=== PATIENT | female | born 2000 | race Caucasian/White ===

== ENCOUNTER 2021-03-13 19:24 | Emergency (ER) | payer BC, MEDICAID ==
[2021-03-13] MEDS ORDERED: Hydrocortisone/Neomycin/Polymyxin B Otic Susp 10 ML Bottle ONE (23:25)
--- NOTE | 2021-03-13 23:31 | EDM.PDOC ---
ED HPI GENERAL MEDICAL PROBLEM - General Chief Complaint: ENT Problem Stated Complaint: EAR PAIN Time Seen by Provider: 03/13/21 20:15 Source of Information: Reports: Family History Limitations: Reports: Language Barrier (hearing impaired) - History of Present Illness INITIAL COMMENTS - FREE TEXT/NARRATIVE: ED with family with c/o left ear pain since . No fever or sore throat. Patient deaf. Mother translating. Tried ibuprofen with partial relief. Left Ear Pain Score (Numeric/FACES): 6 - Related Data Allergies Allergy/AdvReac Type Severity Reaction Status Date / Time No Known Allergies Allergy Verified 03/13/21 20:07 Home Meds: Home Meds FLUoxetine [PROzac] 40 mg PO DAILY 03/13/21 [History] Melatonin 50 mg PO DAILY 03/13/21 [History] buPROPion HCL [Bupropion Xl] 150 mg PO DAILY 03/13/21 [History] traZODone 50 mg PO DAILY 03/13/21 [History] Past Medical History Psychiatric History: Reports: Depression - Past Surgical History HEENT Surgical History: Reports: Other (See Below) Other HEENT Surgeries/Procedures: cochlear implant Social & Family History - Tobacco Use Tobacco Use Status *Q: Never Tobacco User - Recreational Drug Use Recreational Drug Use: No ED ROS ENT - Review of Systems Review Of Systems: Comprehensive ROS is negative, except as noted in HPI. ED EXAM, ENT - Physical Exam Exam: See Below Exam Limited By: No Limitations General Appearance: Alert, No Apparent Distress Eye Exam: Bilateral Eye: EOMI Ears: Normal External Exam, Canal Swelling. No: Normal Canal (left errythema swollen ), Mastoid Swelling, Mastoid Tenderness, Canal Discharge Nose: Normal Inspection Mouth/Throat: Normal Inspection Head: Atraumatic, Normocephalic Neck: Normal Inspection, Lymphadenopathy (L). No: Lymphadenopathy (R) Respiratory/Chest: No Respiratory Distress, Lungs Clear, Normal Breath Sounds Cardiovascular: Regular Rate, Rhythm Neurological: Alert, Oriented, Normal Cognition Psychiatric: Normal Affect Skin: Warm, Dry, Intact Course - Vital Signs Last Recorded V/S: Last Vital Signs Temp 98.4 F 03/13/21 20:07 Pulse 97 03/13/21 20:07 Resp 16 03/13/21 20:07 BP 129/78 03/13/21 20:07 Pulse Ox 98 09/05/21 20:07 - Orders/Labs/Meds Meds: Medications Discontinued Medications Generic Name Dose Route Start Last Admin Trade Name Juan PRN Reason Stop Dose Admin Neomycin/Polymyxin/Hydrocortisone Confirm 03/13/21 23:25 03/13/21 23:43 Hydrocortisone/Neomycin/Polymyxin B Otic Susp 10 Ml Bottle Administered 03/13/21 23:26 Not Given Dose 10 ml .ROUTE .STK-MED ONE Departure - Departure Time of Disposition: 23:28 Disposition: Home, Self-Care 01 Condition: Good Clinical Impression: Otitis externa Qualifiers: Otitis externa type: unspecified type Chronicity: acute Laterality: left Qualified Code(s): H60.502 - Unspecified acute noninfective otitis externa, left ear - Discharge Information *PRESCRIPTION DRUG MONITORING PROGRAM REVIEWED*: No *COPY OF PRESCRIPTION DRUG MONITORING REPORT IN PATIENT LOUISE: No Instructions: Otitis Externa, [id number] Forms: ED Department Discharge Additional Instructions: alternate tylenol 500mg and ibuprofen 600mg every 4 hours as needed for pain hydrocortisone/neomycin/polymyxin ear drops 4 drops 4 times daily x one week recheck clinic 2-3 days if not improving or symptoms worsening
== END 2021-03-13 23:44 | disposition home or self-care (01) ==
LOC: DL.ED 19:24
DX: H60.502 Unspecified acute noninfective otitis externa, left ear (principal)
CPT/HCPCS: 99282; 99283; A9270

== ENCOUNTER 2022-07-19 14:58 | Emergency (ER) | payer BC, MEDICAID ==
[2022-07-19 16:10] LABS: CORONAVIRUS COVID-19 NAA NEGATIVE (NEGATIVE); RESPIRATORY SYNCYTIAL VIR NAA NEGATIVE (NEGATIVE)
[2022-07-19] MEDS: Codeine/Promethazine 10-6.25 MG/5 ML Syrup 5 ML UD Cup PO ONE (17:09)
== END 2022-07-19 17:19 | disposition home or self-care (01) ==
LOC: DL.ED 14:58
DX: J06.9 Acute upper respiratory infection, unspecified (principal); Z20.822 Contact with and (suspected) exposure to COVID-19
CPT/HCPCS: 0241U; 99283; A9270-GY